=== PATIENT | female | born 1975 | race Caucasian/White ===

== ENCOUNTER → 2018-12-06 | Outpatient (CLI) | payer BC ==
[~2018-12-06] MED LIST: ALBU90AE INH; ASPI81TA59 PO; ESSENTIAL OILS PO; FLUT12AE11 INH; IPRA3AMP30 NEB; PREG75CA PO; TRANEXAMIC ACID 100 MG/ML, 10ML ONE
[2018-12-06 14:54] LABS: BASOPHILS # (AUTO) 0.05 x10^3/uL (0-0.1); BASOPHILS % (AUTO) 1 % (0-1); EOSINOPHILS # (AUTO) 0.18 x10^3/uL (0-0.4); EOSINOPHILS % (AUTO) 2 % (1-7); LYMPHOCYTES # (AUTO) 3.01 x10^3/uL (1-3.4); LYMPHOCYTES % (AUTO) 30 % (22-44); MD NO; MEAN CORPUSCULAR HGB CONC 33.1 g/dL (32.4-35.8); MEAN CORPUSCULAR VOLUME 93.6 fL (80-100); MONOCYTES # (AUTO) 0.64 x10^3/uL (0.2-0.8); MONOCYTES % (AUTO) 6 % (2-9); NEUTROPHILS # (AUTO) 6.15 x10^3/uL (1.8-6.8); NEUTROPHILS % (AUTO) 61 % (42-75); PLATELET COUNT 347 x10^3/uL (130-400); RED BLOOD COUNT 4.61 x10^6/uL (3.82-5.3); RED CELL DISTRIBUTION WIDTH 14.6 % (9.6-15.2)
[2018-12-06 15:02] LABS: INTERNATIONAL NORMALIZED RATIO 0.95 (0.93-1.1)
[2018-12-06 15:03] LABS: ANION GAP 8 mmol/L (5-15); CHLORIDE 106 mmol/L (98-107)
[2018-12-06 15:38] LABS: HEMOGLOBIN A1C 5.4 % (4.2-6.3)
== END | disposition home or self-care (01) ==
LOC: STAR 13:27
PROVIDERS: ATTEND Orthopaedic Surgery
DX: Z01.818 Encounter for other preprocedural examination (principal); T84.84XA Pain due to internal orthopedic prosthetic devices, implants and grafts, initial encounter; Y83.8 Other surgical procedures as the cause of abnormal reaction of the patient, or of later complication, without mention of misadventure at the time of the procedure; Y92.89 Other specified places as the place of occurrence of the external cause; Z96.652 Presence of left artificial knee joint
CPT/HCPCS: 36415; 80048; 83036; 85025; 85610; 85730; 87081; 87806; G0475

== ENCOUNTER 2018-12-11 09:04 | Inpatient (IN) | payer BC ==
[~2018-12-11] VITALS: Ht 162.6 cm; Wt 84.9 kg
[~2018-12-11 09:04] MED LIST changes: -ASPI81TA59 PO; +EPINEPHRINE 1 MG/ML, 1ML ONE; +KETOROLAC 60 MG/2 ML ONE; +ROPIvacaine/PF 0.2%, 20 ML ONE; +SODIUM CHLORIDE 0.9% 50 ML ONE
[2018-12-11] MEDS ORDERED: VANCOMYCIN PER PHARMACY MC STA (09:17)
[2018-12-11] MEDS ORDERED: VANCOMYCIN 1,600 MG in SODIUM CHLORIDE 0.9% 250 ML IV ONE (09:30)
[2018-12-11] MEDS ORDERED: LACTATED RINGERS 1,000 ML IV SCH (09:44)
[2018-12-11] MEDS ORDERED: VANCOMYCIN PER PHARMACY MC PRN (10:00)
[2018-12-11] MEDS ORDERED: ACETAMINOPHEN 500 MG TABLET PO ONE (10:00)
[2018-12-11] MEDS ORDERED: GABAPENTIN 300 MG CAPSULE PO ONE (10:00)
[2018-12-11] MEDS ORDERED: SUCCINYLCHOLINE 20 MG/ML, 10ML ONE (10:04)
[2018-12-11] MEDS ORDERED: MIDAZOLAM 1 MG/ML, 2ML ONE (10:05)
[2018-12-11] MEDS ORDERED: FENTANYL PF 250 MCG/5ML ONE (10:05)
[2018-12-11] MEDS ORDERED: LIDOCAINE-MPF 1%, 2ML ONE (10:29)
[2018-12-11] MEDS ORDERED: LIDOCAINE-MPF 1%, 2ML INFIL ONE (10:30)
[2018-12-11] MEDS ORDERED: LORazepam 2 MG/ML, 1ML IVPush PRN ×2 (11:00→15:00)
[2018-12-11] MEDS ORDERED: ALBUTEROL SULFATE 2.5 MG/3 ML NPPB PRN ×2 (11:00→15:00)
[2018-12-11] MEDS ORDERED: METOCLOPRAMIDE 5 MG/ML, 2ML IV PRN (11:00)
[2018-12-11] MEDS ORDERED: FENTANYL PF 100 MCG/2ML IV PRN (11:00)
[2018-12-11] MEDS ORDERED: MEPERIDINE/PF 25MG/0.5ML IVPush PRN ×2 (11:00→15:00)
[2018-12-11] MEDS ORDERED: ONDANSETRON 2MG/ML, 2ML IV PRN ×3 (11:00→15:00)
[2018-12-11] MEDS ORDERED: HYDROmorphone 2 MG/ML, 1ML IVPush PRN ×3 (11:00→15:00)
[2018-12-11] MEDS ORDERED: hydrALAzine 20 MG/ML, 1ML IV PRN ×2 (11:00→15:00)
[2018-12-11] MEDS ORDERED: DIPHENHYDRAMINE 25 MG CAPSULE ONE (11:56)
[2018-12-11] MEDS ORDERED: LIDOCAINE-MPF 2% ,5ML ONE (12:22)
[2018-12-11] MEDS ORDERED: PROPOFOL 10 MG/ML, 20ML ONE (12:22)
[2018-12-11] MEDS ORDERED: CEFAZOLIN 1,000 MG ONE ×2 (12:22)
[2018-12-11] MEDS ORDERED: DEXAMETHASONE 4 MG/ML, 1ML ONE ×2 (12:22)
[2018-12-11] MEDS ORDERED: ONDANSETRON 2MG/ML, 2ML ONE (12:23)
[2018-12-11] MEDS ORDERED: DIPHENHYDRAMINE 25 MG CAPSULE PO ONE (12:30)
[2018-12-11] MEDS ORDERED: ACETAMINOPHEN 325 MG TABLET PO PRN (13:30)
[2018-12-11] MEDS: KETOROLAC 30 MG/1 ML IV SCH ×2 (13:30→21:58)
[2018-12-11] MEDS ORDERED: ACETAMINOPHEN 650 MG/20.3 ML UDC PO PRN (13:30)
[2018-12-11] MEDS ORDERED: DIPHENHYDRAMINE 50 MG/ML, 1ML IVPush PRN (13:30)
[2018-12-11] MEDS ORDERED: SCOPOLAMINE PATCH, 1.5MG PATCH.TD72 TD SCH (13:30)
[2018-12-11] MEDS ORDERED: LORazepam 1MG TABLET PO PRN (13:30)
[2018-12-11] MEDS ORDERED: PROMETHAZINE 12.5 MG SUPP PR PRN (13:30)
[2018-12-11] MEDS ORDERED: BISACODYL 10 MG SUPP PR PRN (13:30)
[2018-12-11] MEDS ORDERED: ONDANSETRON 4 MG TABLET PO PRN (13:30)
[2018-12-11] MEDS ORDERED: PROMETHAZINE 25 MG/ML, 1ML IM PRN (13:30)
[2018-12-11] MEDS ORDERED: MORPHINE SULFATE 4 MG/ML, 1ML IVPush PRN (13:30)
[2018-12-11] MEDS ORDERED: SENNA/DOCUSATE TABLET PO PRN (13:30)
[2018-12-11] MEDS ORDERED: PSYLLIUM PACKET PO PRN (13:30)
[2018-12-11] MEDS ORDERED: DEXAMETHASONE 4 MG/ML, 1ML IVPush ONE (13:30)
[2018-12-11] MEDS ORDERED: MAGNESIUM HYDROXIDE 8%, 30ML UDC PO PRN (13:30)
[2018-12-11] MEDS ORDERED: POLYETHYLENE GLYCOL 17 GM PACKET PO PRN (13:30)
[2018-12-11] MEDS ORDERED: ALUMINUM/MAG/SIMETHICONE 30 ML UDC PO PRN (13:30)
[2018-12-11] MEDS ORDERED: METOCLOPRAMIDE 10MG TABLET PO PRN (13:30)
[2018-12-11] MEDS ORDERED: ROPIvacaine/PF 0.2%, 100ML 550 ML (check volume) INJ ONE (14:30)
[2018-12-11] MEDS ORDERED: BUPIVACAINE/PF 0.5% ONE (14:38)
[2018-12-11] MEDS ORDERED: MEPERIDINE/PF 50 MG/ML ONE (14:39)
[2018-12-11] MEDS ORDERED: FENTANYL PF 100 MCG/2ML ONE (16:23)
[2018-12-11] MEDS ORDERED: HYDROmorphone 2 MG/ML, 1ML ONE (16:23)
[2018-12-11] MEDS: FENTANYL PF 100 MCG/2ML IV PRN ×7 (16:25→18:58)
[2018-12-11] MEDS ORDERED: TRANEXAMIC ACID 1,000 MG in SODIUM CHLORIDE 0.9% 100 ML IVPB ONE (17:00)
[2018-12-11 17:50] VITALS: BP 100/75
[2018-12-11] MEDS ORDERED: ALBUTEROL/IPRATROPIUM 2.5MG/0.5MG, 3 ML NPPB PRN (18:30)
[2018-12-11] MEDS ORDERED: BUDESONIDE 0.5 MG/2 ML INHA NPPB PRN (18:30)
[2018-12-11] MEDS: D5%-0.45NACL+KCL 20MEQ 1,000 ML IV SCH (18:57)
[2018-12-11] MEDS: CEFAZOLIN PMX 1GM/50ML 50 ML IVPB SCH (18:58)
[2018-12-11 19:24] VITALS: BP 105/72
[2018-12-11] MEDS: ASPIRIN 81 MG TABLET EC PO SCH (21:00)
[2018-12-11] MEDS: morphine SULFATE 15 MG TAB.IR PO PRN (21:51)
[2018-12-11] MEDS: DOCUSATE 100 MG CAPSULE PO SCH (21:51)
[2018-12-11] MEDS: PREGABALIN 75 MG CAPSULE PO SCH (21:52)
[2018-12-12 00:21] VITALS: BP 100/63
[2018-12-12] MEDS: CEFAZOLIN PMX 1GM/50ML 50 ML IVPB SCH (03:31)
[2018-12-12 03:40] VITALS: BP 98/64
[2018-12-12] MEDS: D5%-0.45NACL+KCL 20MEQ 1,000 ML IV SCH (04:00)
[2018-12-12] MEDS: DIPHENHYDRAMINE 25 MG CAPSULE PO PRN ×2 (04:02→10:50)
[2018-12-12] MEDS: morphine SULFATE 15 MG TAB.IR PO PRN ×2 (04:02→10:50)
[2018-12-12] MEDS: KETOROLAC 30 MG/1 ML IV SCH (05:32)
[2018-12-12] MEDS: ASPIRIN 81 MG TABLET EC PO SCH (05:34)
[2018-12-12 06:31] VITALS: BP 105/61
[2018-12-12] MEDS: PREGABALIN 75 MG CAPSULE PO SCH (07:54)
[2018-12-12] MEDS: DOCUSATE 100 MG CAPSULE PO SCH (07:54)
[2018-12-12] MEDS ORDERED: ASPI81TA59 PO (08:38)
== END 2018-12-12 12:08 | disposition home or self-care (01) | DRG 468 ==
LOC: ORIP 09:04 → 4NOR 17:45 → DCLOUNGE 12-12 12:00
PROVIDERS: ADMIT Orthopaedic Surgery; ATTEND Orthopaedic Surgery
PROC: 0SRD0J9 Replacement of Left Knee Joint with Synthetic Substitute, Cemented, Open Approach (ICD-10-PCS; 2018-12-11)
PROC: 3E0T3BZ Introduction of Anesthetic Agent into Peripheral Nerves and Plexi, Percutaneous Approach (ICD-10-PCS; 2018-12-11)
PROC: 0SPD0JZ Removal of Synthetic Substitute from Left Knee Joint, Open Approach (ICD-10-PCS; principal; 2018-12-11 11:00)
DX: T84.093A Other mechanical complication of internal left knee prosthesis, initial encounter (principal); Y79.2 Prosthetic and other implants, materials and accessory orthopedic devices associated with adverse incidents; G89.29 Other chronic pain; J45.909 Unspecified asthma, uncomplicated; Z88.5 Allergy status to narcotic agent; Z88.8 Allergy status to other drugs, medicaments and biological substances; Z91.040 Latex allergy status
CPT/HCPCS: 36415; 73560; J3490; S0020; 85014; 85018; C1713; G0378; J0171; J0690; J1100; J1170; J1885; J2175; J2250; J2405; J2704; J2795; J3010; J3370; C1776; J0330; J1200; J2270; J3480; J7050; J7120; Q0163